=== PATIENT | male | born 1955 | race Caucasian/White ===

== ENCOUNTER 2018-12-05 09:30 | Day surgery (SDC) | payer OTHER ==
[~2018-12-05 09:30] MED LIST: BUPIV. HCL 0.25% (2.5MG/ML)/EPI. (1:200,000) PF 10 ML VIAL IM ONE; DEXAMETHASONE SODIUM PHOSPHATE 10 MG/ML VIAL ONE; HYDROmorphone HCL/PF 1 MG/ML VIAL ONE; LABETALOL HCL 20 MG/4 ML SYRINGE IV ONE; LACTATED RINGERS 1,000 ML IV.SOLN IV ONE; LIDOCAINE HCL 1% PF 300MG/30ML VIAL ONE; LIDOCAINE HCL 2% PF 100MG/5ML VIAL IJ ONE; MIDAZOLAM HCL 2 MG/2 ML VIAL ONE; ONDANSETRON HCL/PF 4 MG/ 2ML VIAL ONE; PHENYLEPHRINE HCL 10 MG/1 ML ONE; PROPOFOL 200 MG/20 ML VIAL IV ONE; ROCURONIUM BROMIDE 10 MG/ML 5ML VIAL ONE; SEVOFLURANE 250 ML LIQUID IH ONE; SODIUM CHLORIDE IRRIG SOLUTION 3,000 ML IRRIG.SOLN IR ONE; SUGAMMADEX SODIUM 200 MG/2 ML VIAL IV ONE; ceFAZolin SODIUM 1 GM VIAL ONE; fentaNYL CITRATE/PF 100 MCG/2 ML INJ. ONE
[2018-12-05] MEDS ORDERED: HYDROmorphone HCL/PF 1 MG/ML VIAL ONE (13:19)
[2018-12-05] MEDS ORDERED: fentaNYL CITRATE/PF 100 MCG/2 ML INJ. ONE (13:26)
[2018-12-05] MEDS ORDERED: 0.9 % SODIUM CHLORIDE 1,000 ML IV ONE (14:25)
--- NOTE | 2018-12-09 15:01 | Operative Note ---
PREOPERATIVE DIAGNOSIS: 1. Morbid obesity. 2. Hypertension. 3. Hyperlipidemia. 4. Obstructive sleep apnea. POSTOPERATIVE DIAGNOSIS: 1. Morbid obesity. 2. Hypertension. 3. Hyperlipidemia. 4. Obstructive sleep apnea. PROCEDURES PERFORMED: 1. Laparoscopic vertical sleeve gastrectomy. 2. Upper gastrointestinal endoscopy. SURGEON: Hema Leon M.D. INDICATIONS FOR PROCEDURE: Mr. Lee is a 63-year-old male who presented with features of morbid obesity. He was noted to have a weight of 296 pounds with a BMI of 39.05 with the above-listed comorbidities. The patient was advised laparoscopic vertical sleeve gastrectomy and possible hiatal hernia repair. The patient showed understanding and agreed to proceed. DESCRIPTION OF PROCEDURE: After explaining to the patient in detail and informed consent was obtained, the patient was identified in the preoperative holding area. The patient was transferred to the operating room and was placed in supine position. Sequential compressive devices were placed for DVT prophylaxis. Preoperative antibiotics were given. After induction of anesthesia, the abdomen was prepped and draped in a sterile fashion. Through a left upper quadrant 1-cm incision, and using Optiview technique, the peritoneal cavity was entered and pneumoperitoneum was created. Thereafter, under direct vision, another 5-mm trocar was placed in the left midabdomen and another 15-mm trocar was placed in the right midabdomen. Through a 1-cm incision in the right subcostal region, another 5-mm trocar was placed. Through a 1-cm incision in the epigastrium, a Trev retractor was introduced and the left lobe of the liver was retracted. On initial inspection, the patient was noted to have no evidence of hiatal hernia. I took down the gastroepiploic vessels using a LigaSure. This was continued superiorly. The short gastric vessels were taken down. The gastrophrenic ligament was divided and the Angle of His was mobilized. The posterior attachments of the stomach on the pancreas were released. Distally, the gastroepiploic vessels were taken down up to about 4 cm proximal to the pylorus. At this point, a #38 [place] Bougie was introduced into the stomach and was placed along the lesser curve. The stomach was then divided in a vertical fashion with multiple Endo VERONICA Covidien Black Load Staplers. The first firing was directed outwards towards the greater curvature. Subsequent firings were directed towards the Angle of His to create a loose sleeve around the #38 [place] bougie. The bougie was then removed and an upper GI endoscopy was performed at this point. The scope was introduced into the esophagus and was gradually advanced into the stomach. The GE junction appeared normal. The sleeve size appeared normal. No evidence of any active bleeding was noted. The stomach was insufflated with air and irrigation of fluid along the staple line revealed no evidence of air leak. The stomach was then suctioned out and the scope was removed. Absolute hemostasis was ensured. Thorough saline irrigation was given. The Trev retractor was removed. Approximately 10 mL of a lidocaine- Marcaine mix was instilled under the left hemidiaphragm. The sleeve gastrectomy specimen was removed. The abdomen was then deflated. The incisions were closed with 4-0 Monocryl. Dermabond was applied. Approximately 10 mL of a lidocaine- Marcaine mix was injected into all the incisions. The patient was awakened from anesthesia and was transferred to the recovery room in stable condition. ESTIMATED BLOOD LOSS: Approximately 10 mL. CONDITION OF THE PATIENT: Stable. FLUIDS GIVEN: Per Anesthesia note. SPECIMEN(S) SENT: Sleeve gastrectomy specimen. COMPLICATIONS: None. ANESTHESIA: General. Hema Leon M.D. [email or web address] (Please copy [facility] provider when applicable) Job #[id number] CHRIS
== END 2018-12-05 14:09 | disposition other institution (70) ==
LOC: OPSURG 09:30
PROVIDERS: ATTEND Surgery
DX: E66.01 Morbid (severe) obesity due to excess calories (principal); G47.33 Obstructive sleep apnea (adult) (pediatric); I10 Essential (primary) hypertension; E78.5 Hyperlipidemia, unspecified; Z68.39 Body mass index [BMI] 39.0-39.9, adult
CPT/HCPCS: 43235; 43775; J0690; J1170; J2001; J2250; J2370; J2405; J2704; J3010; J7030; J7120

== ENCOUNTER 2018-12-05 14:10 | Inpatient (IN) | payer OTHER ==
[2018-12-05] MEDS ORDERED: ONDANSETRON HCL/PF 4 MG/ 2ML VIAL IVP PRN (16:40)
[2018-12-05] MEDS ORDERED: PROMETHAZINE HCL 25 MG in 0.9 % SODIUM CHLORIDE 50 ML IV PRN (16:40)
[2018-12-05] MEDS ORDERED: MORPHINE SULFATE 2 MG/ML VIAL IV PRN (16:40)
[2018-12-05] MEDS: ceFAZolin SODIUM 1 GM in 0.9 % SODIUM CHLORIDE 50 ML IV SCH (20:34)
[2018-12-05] MEDS: FAMOTIDINE 20 MG/2 ML VIAL IV SCH (20:34)
[2018-12-05] MEDS: 0.9 % SODIUM CHLORIDE 1,000 ML IV SCH (20:37)
[2018-12-05] MEDS ORDERED: IPRATROPIUM/ALBUTEROL SULFATE 3 ML AMPUL.NEB NEB PRN (20:38)
[2018-12-05] MEDS: ACETAMINOPHEN 1,000 MG/100 ML INJ IV PRN (21:48)
[2018-12-05] MEDS: ALPRAZolam 0.5 MG TABLET PO SCH (21:49)
[2018-12-06] MEDS: HYDROcodone-ACETAMIN 7.5-325/15ML SOLN UD CUP PO PRN ×4 (02:46→22:41)
[2018-12-06] MEDS: ceFAZolin SODIUM 1 GM in 0.9 % SODIUM CHLORIDE 50 ML IV SCH (02:47)
[2018-12-06] MEDS: 0.9 % SODIUM CHLORIDE 1,000 ML IV SCH ×3 (04:11→17:11)
--- NOTE | 2018-12-06 07:02 | Inpatient Progress Note ---
Subjective - Required Recertification Statement I anticipate X number of days because-include discharge plan: 1 - Review of Systems Events since last encounter: Patient is lying in bed this morning awake. He states that he did not get much sleep. He was having a lot of discomfort last night. He states that pain is improving. He has had some nausea and moderate discomfort from the gas. He denies any chest pain or shortness of breath. He has been up ambulating in the halls and using incentive spirometer while awake. He was having some anxiety last night- xanax was implemented. He did have a low grade fever this morning- used incentive spirometer and walked and it lowered. General: Fatigue HEENT: Denies: Head Aches, Dysphasia Pulmonary: Denies: Dyspnea, Cough Cardiovascular: Denies: Chest Pain, Light Headedness Gastrointestinal: Nausea, Abdominal Pain. Denies: Vomiting Genitourinary: Denies: Dysuria Musculoskeletal: Denies: Back Pain Neurological: Weakness Objective - Exam Vitals and I&O: Vital Signs Temp 100.1 F H 12/06/18 05:42 Pulse 103 H 12/06/18 05:42 Resp 20 12/06/18 05:42 BP 168/97 12/06/18 05:42 Pulse Ox 97 12/06/18 05:47 Intake & Output 12/05/18 12/05/18 12/06/18 11:59 23:59 11:59 Intake Total 310 1060 Output Total 675 Balance 310 385 Intake: IV 300 1050 Right Hand 300 1050 Oral 10 10 Output: Urine 675 Other: Voiding Method Urinal Urinal # Voids 2 General: Alert, Oriented to Person, Oriented to Place, Oriented to Time, Mild distress, Morbidly Obese HEENT: Atraumatic, PERRLA, Mouth Mucous membr. moist/[place], Nose Mucous membr. moist/[place] Neck: Supple, +2 carotid pulse wo bruit Lungs: Clear to auscultation, Normal air movement, Speaks full Sentences Cardiovascular: Normal S1, Normal S2, Tachycardia Abdomen: Soft, Decreased Bowel Sounds Extremities: No edema, Normal pulses, No tenderness/swelling Skin: Warm, Dry, Pale, Other (Incisions x 5 without redness/erythema- skin adhesive intact) Neurological: Normal gait, Normal speech, Strength Equal Bilat, Generalized Weakness Psych/Mental Status: Mental status NL, Mood NL, Appropriate Affect, Intact Judgment Assessment/Plan - Assessment/Plan (1) Anxiety and depression Status: Acute Current Visit: Yes Assessment: Patient c/o feeling anxious- requesting his Xanax Plan: Will start patient back on his Xanax at HS (2) Hypertension Status: Acute Current Visit: Yes Qualifiers: Hypertension type: essential hypertension Qualified Code(s): I10 - Essential (primary) hypertension Assessment: Blood pressure slightly elevated 150s Plan: Will start patient on his lisinopril (3) Morbid (severe) obesity due to excess calories Status: Acute Current Visit: Yes Assessment: Patient tolerating ice chips and water; some nausea Plan: Will advance diet to clear liquids today (4) Nausea and vomiting Status: Acute Current Visit: Yes Assessment: Patient still experiencing some nausea- no vomiting Plan: Will continue with IV Zofran and phenergan; IV pepcid BID (5) KEYONNA on CPAP Status: Acute Current Visit: Yes Assessment: Does well with CPAP Plan: Continue CPAP (6) Status post gastric surgery Status: Acute Current Visit: Yes Assessment: Patient experiencing nausea; has been ambulating, wearing SCDs while in bed, using incentive spirometry, patient receiving lovenox to prevent DVT Plan: Patient getting IV fluids for hydration, IV pain meds, and IV antiemetics. Lovenox and SCDs to help prevent DVTs, IS and frequent ambulation will be implemented. Patient eating ice chips and will advance diet to clear liquids as tolerated once nausea and vomiting is controlled. Will continue with Pepcid IV BID for GI upset
[2018-12-06 07:28] LABS: BASOPHILS % 0.5 % (0.0-1.5); NEUTROPHILS # 11.6 # k/uL (1.4-7.7)
[2018-12-06 07:29] LABS: eGFR (Non-African) > 60
[2018-12-06] MEDS: ACETAMINOPHEN 1,000 MG/100 ML INJ IV PRN (07:48)
[2018-12-06] MEDS: FAMOTIDINE 20 MG/2 ML VIAL IV SCH ×2 (09:46→20:37)
--- NOTE | 2018-12-06 10:26 | History and Physical Report ---
History of Present Illnes - History of Present Illness Reason for Visit: S/P LSG History of Present Illness: Patient is a 63-year-old male who has tried multiple diets and exercise programs with no success. he has always struggled with his weight. Patient and surgeon decided to proceed with gastric sleeve procedure. Procedure went well- He will be admitted and monitored s/p surgical intervention. Patient has been on a liquid diet prior to surgery so he is a risk of dehydration s/p surgery. He will be admitted for IV hydration to help hydrate patient until he is able to tolerate a sufficient oral intake, will treat pain with IV medication until patient is able to tolerate oral meds, IV antiemetics to help reduce episodes of nausea and/or vomiting. Patient will be monitored closely using telemetry s/p surgery d/t HTN and history of TIA. Will use incentive spirometer frequently due to KEYONNA and will use CPAP when sleeping. Patient appears very uncomfortable s/p surgery. - Past Medical History Cardiac: HTN, Hyperlipidemia Pulmonary: Sleep Apnea (with CPAP) UTILITIES MANAGER: TIA, Other (Trigeminal Neuralgia) Psych: Anxiety, Depression Endocrine: obesity - Past Surgical History Past Surgical History: Appendectomy, Cholecystectomy - Past Family History Father Family History: CVA, Hypertension Mother Family History: CVA, Hypertension - Past Social History Smoke: <1 pack per day Alcohol: Rare Drugs: Marijuana Lives: With Family Domestic Violence: Negative - Health Maintenance Health Maintenance: Cholesterol Influenza Vaccine: No, Patient Refused Pneumonia Vaccine: No Resuscitation Status: Resusciation Status Resuscitation Status Full Code Review of Systems - Review of Systems Constitutional: negative: Fever, Chills Eyes: negative: pain, vision change ENT: negative: Ear Pain, Nose Discharge, Throat Pain Respiratory: SOB with Excertion Cardiovascular: negative: Chest Pain, Light Headedness Gastrointestinal: Nausea, Abdominal Pain (s/p LSG). negative: Vomiting Genitourinary: negative: Dysuria Musculoskeletal: negative: Back Pain Skin: negative: Rash Neurological: Weakness - Medications/Allergies Allergies/Adverse Reactions: Allergies Allergy/AdvReac Type Severity Reaction Status Date / Time No Known Drug Allergies Allergy Verified 12/05/18 16:36 Current Inpatient Medications: Current Inpatient Medications Acetaminophen (Ofirmev) 1,000 mg IV Q6H PRN PRN Reason: Mild Pain (Score 1-4) Stop: 12/06/18 23:59 Last Admin: 12/06/18 07:48 Dose: 1,000 mg Hydrocodone Bitart/Acetaminophen (Hycet 7.5-325mg/15 Ml Ud Cup) 15 ml PO Q4H PRN PRN Reason: Moderate Pain (Score 5-7) Stop: 12/06/18 23:59 Last Admin: 12/06/18 02:46 Dose: 15 ml Albuterol/Ipratropium (Duoneb) 3 ml NEB Q4 PRN PRN Reason: Wheezing Stop: 01/04/19 20:37 Alprazolam (Xanax) 2 mg PO HS [facility] Stop: 01/04/19 21:59 Last Admin: 12/05/18 21:49 Dose: 2 mg Enoxaparin Sodium (Lovenox) 40 mg SQ DAILY [facility] Stop: 12/20/18 10:59 Famotidine (Pepcid) 20 mg IV BID [facility] Last Admin: 12/06/18 09:46 Dose: 20 mg Sodium Chloride (Normal Saline) 1,000 mls @ 150 mls/hr IV Q8H [facility] Last Admin: 12/06/18 04:11 Dose: 150 mls/hr Promethazine HCl 25 mg/ Sodium (Chloride) 51 mls @ 204 mls/hr IV Q6H PRN PRN Reason: Nausea / Vomiting Stop: 12/06/18 23:59 Ketorolac Tromethamine (Toradol) 30 mg IV Q6H PRN PRN Reason: Pain Stop: 12/11/18 10:59 Last Admin: 12/06/18 09:46 Dose: 30 mg Morphine Sulfate () 2 mg IV Q2H PRN PRN Reason: Severe Pain (Score 8-10) Stop: 12/06/18 23:59 Last Admin: 12/06/18 09:46 Dose: 2 mg Ondansetron HCl (Zofran) 4 mg IVP Q6H PRN PRN Reason: Nausea / Vomiting Stop: 12/06/18 23:59 Exam - Exam Vital Signs: Vital Signs (72 hours) 12/05/18 12/05/18 12/05/18 20:38 20:39 21:36 Temperature 99.3 F Pulse Rate 110 H 110 H Pulse Rate [ 112 H Left] Respiratory 20 Rate Blood Pressure 172/95 [Left Arm] O2 Sat by Pulse 94 94 Oximetry 12/05/18 12/06/18 12/06/18 22:00 02:00 05:11 Temperature 100.5 F H Pulse Rate 110 H 102 H Pulse Rate [ 108 H Left] Respiratory 20 20 Rate Blood Pressure 165/85 [Left Arm] O2 Sat by Pulse 90 L Oximetry 12/06/18 12/06/18 12/06/18 05:26 05:42 05:47 Temperature 100.1 F H Pulse Rate Pulse Rate [ 108 H 103 H Left] Respiratory 20 20 Rate Blood Pressure 168/97 [Left Arm] O2 Sat by Pulse 97 97 Oximetry 12/06/18 09:03 Temperature 99.6 F Pulse Rate Pulse Rate [ 94 H Left] Respiratory 20 Rate Blood Pressure 157/81 [Left Arm] O2 Sat by Pulse 96 Oximetry General: Alert, Oriented to Person, Oriented to Place, Oriented to Time, Cooperative, Moderate distress (Appears uncomfortable after surgery), Morbidly Obese HEENT: Atraumatic, PERRLA, Mouth Mucous membr. moist/[place], Nose Mucous membr. moist/[place] Neck: Normal Range of Motion Carotids: No bruit Lungs: Clear to auscultation, Normal air movement, Accessory Muscle Use Cardiovascular: Normal S1, Normal S2, Tachycardia Peripheral Edema: None Peripheral Pulses: 2+ Abdomen: Soft, Decreased Bowel Sounds Integumentary: Warm, Dry, Pale, Other (Incision sites x5 without redness/erythema- skin adhesive intact) Extremities: No edema, Normal pulses, No tenderness/swelling Neurological: Normal speech, Sensation intact, Generalized Weakness Psych/Mental Status: Mood NL, Appropriate Affect - Laboratory Results Laboratory Results: Laboratory Results 12/06/18 12/06/18 05:00 05:00 WBC 14.20 H RBC 4.70 Hgb 14.9 Hct 43.8 MCV 93.0 MCH 31.7 MCHC 34.0 RDW 13.0 Plt Count 273 Neut % (Auto) 82.0 H Lymph % (Auto) 10.6 L [place] % (Auto) 6.0 Eos % (Auto) 0.9 Baso % (Auto) 0.5 Neut # (Auto) 11.6 H Lymph # (Auto) 1.5 [place] # (Auto) 0.9 Eos # (Auto) 0.1 Baso # (Auto) 0.1 Sodium 138 Potassium 4.6 Chloride 100 Carbon Dioxide 26 Anion Gap 16.6 BUN 15 Creatinine 0.79 Est GFR ( Amer) > 60 Est GFR (Non-Af Amer) > 60 Glucose 131 H Calcium 8.8 Total Bilirubin 0.5 AST 61 H ALT 84 H Alkaline Phosphatase 93 Total Protein 7.2 Albumin 4.0 Assessment/Plan - Assessment/Plan (1) Status post gastric surgery Status: Acute Current Visit: Yes Plan: Plan to admit for IV hydration, IV pain meds, and IV antiemetics. Lovenox and SCDs to help prevent DVTs, IS and frequent ambulation will be implemented. Start ice chips and advance diet as tolerated. (2) Morbid (severe) obesity due to excess calories Status: Acute Current Visit: Yes Plan: Patient is s/p gastric sleeve. We will assist patient with implementing gastric sleeve diet protocol starting with ice chips and clear liquids and advancing as tolerated. (3) KEYONNA on CPAP Status: Acute Current Visit: Yes Plan: Will use CPAP when sleeping (4) Hypertension Status: Acute Current Visit: Yes Qualifiers: Hypertension type: essential hypertension Qualified Code(s): I10 - Essential (primary) hypertension Plan: Will hold medication until able to tolerate PO- will monitor blood pressures closely (5) Anxiety and depression Status: Acute Current Visit: Yes Plan: Will hold medication at this time until patient can tolerate PO; will assess patient regularly (6) Nausea and vomiting Status: Acute Current Visit: Yes Plan: Will treat with IVF, IV Zofran, IV phenergan; and Pepcid IV 20mg BID VTE Assessment - RISK FACTOR SCORE VTE RISK FACTOR SCORES: AGE OVER 60 YEARS, OBESITY, SMOKER, MAJOR SURGERY/ANESTHESIA TIME > 1 HOUR - RISK VTE HIGH RISK: SCORE OF 3-4 (RISK PROXIMAL DVT 4-8%) PROPHYLAXIS NEEDED (Lovenox daily, SCDs while in bed, Incentive spirometer, frequent ambulation)
[2018-12-06] MEDS ORDERED: KETOROLAC TROMETHAMINE 30 MG/1ML VIAL IV PRN (11:00)
[2018-12-06] MEDS: ENOXAPARIN SODIUM 40 MG/0.4 ML DISP.SYRIN SQ SCH (11:22)
[2018-12-06] MEDS: LISINOPRIL 10 MG TABLET PO SCH (14:04)
[2018-12-06] MEDS: ALPRAZolam 0.5 MG TABLET PO SCH (20:38)
[2018-12-07] MEDS ORDERED: PROMETHAZINE HCL 25 MG in 0.9 % SODIUM CHLORIDE 50 ML IV PRN (00:10)
[2018-12-07] MEDS ORDERED: ONDANSETRON HCL/PF 4 MG/ 2ML VIAL IVP PRN (00:11)
[2018-12-07] MEDS: 0.9 % SODIUM CHLORIDE 1,000 ML IV SCH ×2 (00:43→05:50)
[2018-12-07] MEDS: HYDROcodone-ACETAMIN 7.5-325/15ML SOLN UD CUP PO PRN ×2 (03:48→09:30)
--- NOTE | 2018-12-07 07:01 | Discharge Summary ---
Discharge Summary - Discharge [facility] Admission Date: 12/05/18 Discharge Date: 12/07/18 Discharge To: Home History of Present Illness: Patient is a 63-year-old male who has tried multiple diets and exercise programs with no success. he has always struggled with his weight. Patient and surgeon decided to proceed with gastric sleeve procedure. Procedure went well- He will be admitted and monitored s/p surgical intervention. Patient has been on a liquid diet prior to surgery so he is a risk of dehydration s/p surgery. He will be admitted for IV hydration to help hydrate patient until he is able to tolerate a sufficient oral intake, will treat pain with IV medication until patient is able to tolerate oral meds, IV antiemetics to help reduce episodes of nausea and/or vomiting. Patient will be monitored closely using telemetry s/p surgery d/t HTN and history of TIA. Will use incentive spirometer frequently due to KEYONNA and will use CPAP when sleeping. Patient appears very uncomfortable s/p surgery. Condition at Discharge: Stable Home Medications: Ambulatory Orders Medication Instructions Recorded Alprazolam [Xanax] 2 mg PO HS 12/05/18 Aspirin 81 mg PO DAILY 12/05/18 Atorvastatin Calcium 80 mg PO HS 12/05/18 Clonazepam 1 mg PO BID 12/05/18 Lisinopril 20 mg PO DAILY 12/05/18 Methylphenidate HCl 10 mg PO DAILY 12/05/18 [Methylphenidate ER] Consultations this Visit: None Procedures this Visit: None Allergies/Adverse Reactions: Allergies Allergy/AdvReac Type Severity Reaction Status Date / Time No Known Drug Allergies Allergy Verified 12/05/18 16:36 Patient Problems: Current Active Problems Problem Status Onset Anxiety and depression Acute Hypertension Acute Morbid (severe) obesity due to excess calories Acute Nausea and vomiting Acute KEYONNA on CPAP Acute Status post gastric surgery Acute Discharge Summary: Patient is a 63-year-old male that underwent the gastric sleeve procedure. He had some issues with nausea and dry heaves but has done well. He has been very cooperative with his care by ambulating frequently, using his incentive spirometer, and wearing his SCDs while in bed. He has been compliant with his diet during hospitalization. He is having minimal discomfort at this time and minimal nausea- he has been passing gas and belching. He is aware of discharge instructions and what he can and cannot do post surgical- he is aware of the strict diet he must follow to decrease discomfort and have success after procedure. He has family support and family will be taking him home- medications written by surgeon given to patient. He feels ready to go home. Hospital Course: Patient received IV pain medications, antiemetics, and IVF and was transitioned to oral. He has been up ambulating and using incentive spirometer. - Final Diagnosis (1) Anxiety and depression Problems: Stable- continue on home meds Right or Left: Right (2) Hypertension Problems: Stable- continue on home meds Right or Left: Right (3) Morbid (severe) obesity due to excess calories Problems: Incision without redness or drainage, positive bowel sounds, minimal discomfort, belching and flatus, no extremity pain or edema, LCTA Right or Left: Right (4) Nausea and vomiting Problems: STable- script for phenergan given Right or Left: Right (5) KEYONNA on CPAP Problems: Stable- continue use of CPAP Right or Left: Right (6) Status post gastric surgery Problems: Continue with bariatric sleeve diet- clear liquids today and start full liquids tomorrow; protein shake 80-100 grams protein Right or Left: Right
[2018-12-07 08:42] VITALS: BP 178/101
[2018-12-07] MEDS ORDERED: HYDROcodone-ACETAMIN 7.5-325/15ML SOLN UD CUP PO ONE (09:26)
[2018-12-07] MEDS: ENOXAPARIN SODIUM 40 MG/0.4 ML DISP.SYRIN SQ SCH (09:30)
[2018-12-07] MEDS: LISINOPRIL 10 MG TABLET PO SCH (09:30)
[2018-12-07] MEDS: FAMOTIDINE 20 MG/2 ML VIAL IV SCH (09:32)
== END 2018-12-07 10:30 | disposition home or self-care (01) | DRG 621 ==
LOC: SOUTH 14:10
PROVIDERS: ADMIT Nurse Practitioner Family; ATTEND Nurse Practitioner Family
PROC: 0DB64Z3 Excision of Stomach, Percutaneous Endoscopic Approach, Vertical (ICD-10-PCS; principal; 2018-12-05)
DX: E66.01 Morbid (severe) obesity due to excess calories (principal); I10 Essential (primary) hypertension; G47.33 Obstructive sleep apnea (adult) (pediatric); E78.5 Hyperlipidemia, unspecified; F41.9 Anxiety disorder, unspecified; F17.210 Nicotine dependence, cigarettes, uncomplicated; F32.9 Major depressive disorder, single episode, unspecified; R50.9 Fever, unspecified; G50.0 Trigeminal neuralgia; Z86.73 Personal history of transient ischemic attack (TIA), and cerebral infarction without residual deficits; Z99.89 Dependence on other enabling machines and devices; Z90.49 Acquired absence of other specified parts of digestive tract; Z82.3 Family history of stroke; Z82.49 Family history of ischemic heart disease and other diseases of the circulatory system; Z79.899 Other long term (current) drug therapy; Z79.82 Long term (current) use of aspirin; Z68.39 Body mass index [BMI] 39.0-39.9, adult
CPT/HCPCS: 80053; 85025; 97116; 97161; 97165; 97530; A9270; J0690; J1650; J1885; J2270; J7030; 99024; 99238